=== PATIENT | female | born 1960 | race Caucasian/White ===

== ENCOUNTER → 2016-10-23 | Outpatient (CLI) | payer BC ==
[~2016-10-23] MED LIST: ASPI81TA2 PO; TAMO20TA4 PO
--- NOTE | 2016-10-25 14:32 | DI ---
Indication: ITS.REASON: M25.516 POSTERIOR KNEE PAIN, RT SIDE PROCEDURE: MRI KNEE RIGHT W/O CONTRAST: Encounter: Initial Comparison: None Technique: Multiplanar multisequence MR imaging of the right knee was performed without contrast. Findings: There is evidence of fraying or partial tearing of the posterior horn lateral meniscus undersurface. This is near the root. Medial meniscus shows some degenerative fraying but no discrete tear. The ACL and PCL are intact. The MCL and lateral collateral ligament complex are intact. The extensor mechanism is intact. No acute fracture. Bone marrow signal intensity is normal. The cartilage of the medial compartment is intact. Lateral compartment cartilage shows some fissuring of the tibial plateau on coronal image #9 but no full-thickness defect. Patellofemoral compartment has areas of full-thickness loss in the lateral facet with subchondral edema. No joint effusion or Pruitt's cyst. Muscular signal intensity is normal. Impression: 1. No ligamentous injury. 2. Fraying or partial tearing of the posterior root lateral meniscus. 3. Lateral and patellofemoral chondromalacia. .
== END ==
LOC: IMA 15:41
PROVIDERS: ATTEND Nurse Practitioner
DX: S83.281A Other tear of lateral meniscus, current injury, right knee, initial encounter (principal); X58.XXXA Exposure to other specified factors, initial encounter; Y93.9 Activity, unspecified; Y92.9 Unspecified place or not applicable; Y99.9 Unspecified external cause status